=== PATIENT | female | born 1945 | race Asian ===

== ENCOUNTER 2024-10-28 11:06 | Emergency (ER) | payer MEDICARE, OTHER ==
[~2024-10-28] VITALS: Ht 165.1 cm; Wt 70.3 kg
[~2024-10-28 11:06] MED LIST: ACET-2605; ALLO100T25; GLIM4TAB; SIMV-46
[2024-10-28 11:20] VITALS: TEMP 98.4
[2024-10-28] MEDS ORDERED: ACET-2605 PO (14:20)
[2024-10-28] MEDS ORDERED: IBUP-1490 PO (14:20)
[2024-10-28 15:00] VITALS: BP 118/64
[2024-10-28 15:15] VITALS: O2SAT 97
== END 2024-10-28 15:05 | disposition home or self-care (01) ==
LOC: ER 11:26
DX: S92.355A Nondisplaced fracture of fifth metatarsal bone, left foot, initial encounter for closed fracture (principal); I10 Essential (primary) hypertension; E11.9 Type 2 diabetes mellitus without complications; G89.29 Other chronic pain; Z79.84 Long term (current) use of oral hypoglycemic drugs; Z79.899 Other long term (current) drug therapy; Z88.0 Allergy status to penicillin; W01.0XXA Fall on same level from slipping, tripping and stumbling without subsequent striking against object, initial encounter; Y93.89 Activity, other specified; Y92.098 Other place in other non-institutional residence as the place of occurrence of the external cause; Y99.8 Other external cause status
CPT/HCPCS: 73610-TC; 73630-TC